=== PATIENT | male | born 1970 | race Caucasian/White ===

== ENCOUNTER 2016-11-28 05:13 | Emergency (ER) | payer BC ==
[~2016-11-28] VITALS: Ht 170.2 cm; Wt 93.4 kg
[2016-11-28 05:22] VITALS: BP 145/89; PULSE 54; RESP 14; TEMP 98.5; O2SAT 99
[2016-11-28] MEDS ORDERED: SODIUM CHLORIDE 0.9% FLUSH 10 ML FLUSH IV FLUSH PRN (05:45)
--- NOTE | 2016-11-28 05:53 | PD ---
HPI Chief Complaint: Abdominal Pain Time Seen by Provider: 05:34 Travel History International Travel<30 days: No Contact w/Intl Traveler<30days: No Traveled to known affect area: No History of Present Illness HPI Is a 46-year-old man who presents emergency department complaint of right sided abdominal pain started tonight about 2 AM or so. States he felt clammy and cold when it started. He also had 2 episodes of vomiting. His never really had it before. He is feeling well both started. No change in his bowel movements. No urinary symptoms. No history of abdominal surgery. No other complaints. History Past Medical History Medical History: Denies Significant Hx Tetanus Vaccination: > 5 Years Influenza Vaccination: No Social History Alcohol Use: No Tobacco Use: No Allergies-Medications (Allergen,Severity, Reaction): Coded Allergies: No Known Allergies (Unverified , 11/28/16) Reported Meds & Prescriptions Reported Meds & Active Scripts Active Zofran Odt (Ondansetron Odt) 4 Mg Tab 4 Mg SL Q8HR PRN May substitute non-ODT form. Naprosyn (Naproxen) 500 Mg Tab 500 Mg PO BID PRN Lortab (Hydrocodone-Acetaminophen) 5-325 Mg Tab 1-2 Tab PO Q6H PRN Review of Systems Except as stated in HPI: all other systems reviewed are Neg Physical Exam Narrative GENERAL: Well-appearing 46-year-old man, appears a little but nontoxic. SKIN: Focused skin assessment low but clammy. NECK: Trachea midline. No JVD. CARDIOVASCULAR: Regular rate and rhythm. No murmur appreciated. RESPIRATORY: No accessory muscle use. Clear to auscultation. Breath sounds equal bilaterally. GASTROINTESTINAL: No CVA tenderness percussion. Abdomen is flat and soft. Mild right lower quadrant tenderness. No rebound or guarding. No right upper quadrant tenderness. Negative Hay's. MUSCULOSKELETAL: No obvious deformities. No clubbing. No cyanosis. No edema. NEUROLOGICAL: Awake and alert. No obvious cranial nerve deficits. Motor grossly within normal limits. Normal speech. PSYCHIATRIC: Appropriate mood and affect; insight and judgment normal. Data Data Last Documented VS Vital Signs Date Time Temp Pulse Resp B/P Pulse Ox O2 Delivery O2 Flow Rate FiO2 11/28/16 05:22 98.5 54 14 145/89 99 Orders Complete Blood Count With Diff (11/28/16 05:34) Comprehensive Metabolic Panel (11/28/16 05:34) Lipase (11/28/16 05:34) Urinalysis - C+S If Indicated (11/28/16 05:34) Iv Access Insert/Monitor (11/28/16 05:34) Ecg Monitoring (11/28/16 05:34) Oximetry (11/28/16 05:34) Sodium Chloride 0.9% Flush (Ns Flush) (11/28/16 05:45) Ed Poc Ultrasound (11/28/16 05:34) Ct Abd/Pel W/O Iv Contrast (11/28/16 ) Ketorolac Inj (Toradol Inj) (11/28/16 06:30) Sodium Chlor 0.9% 1000 Ml Inj (Ns 1000 M (11/28/16 06:30) Labs Laboratory Tests Test 11/28/16 11/28/16 05:40 05:45 White Blood Count 9.5 TH/MM3 Red Blood Count 5.24 MIL/MM3 Hemoglobin 15.4 GM/DL Hematocrit 47.0 % Mean Corpuscular Volume 89.8 FL Mean Corpuscular Hemoglobin 29.4 PG Mean Corpuscular Hemoglobin 32.8 % Concent Red Cell Distribution Width 13.6 % Platelet Count 303 TH/MM3 Mean Platelet Volume 7.9 FL Neutrophils (%) (Auto) 80.9 % Lymphocytes (%) (Auto) 12.9 % Monocytes (%) (Auto) 4.9 % Eosinophils (%) (Auto) 0.7 % Basophils (%) (Auto) 0.6 % Neutrophils # (Auto) 7.6 TH/MM3 Lymphocytes # (Auto) 1.2 TH/MM3 Monocytes # (Auto) 0.5 TH/MM3 Eosinophils # (Auto) 0.1 TH/MM3 Basophils # (Auto) 0.1 TH/MM3 CBC Comment DIFF FINAL Differential Comment Sodium Level 143 MEQ/L Potassium Level 3.4 MEQ/L Chloride Level 107 MEQ/L Carbon Dioxide Level 26.2 MEQ/L Anion Gap 10 MEQ/L Blood Urea Nitrogen 16 MG/DL Creatinine 1.30 MG/DL Estimat Glomerular Filtration 59 ML/MIN Rate Random Glucose 114 MG/DL Calcium Level 8.6 MG/DL Total Bilirubin 0.2 MG/DL Aspartate Amino Transf 27 U/L (AST/SGOT) Alanine Aminotransferase 48 U/L (ALT/SGPT) Alkaline Phosphatase 92 U/L Total Protein 7.5 GM/DL Albumin 3.7 GM/DL Lipase 109 U/L Urine Color YELLOW Urine Turbidity SLIGHT Urine pH 5.0 Urine Specific Delia 1.024 Urine Protein TRACE mg/dL Urine Glucose (UA) NEG mg/dL Urine Ketones NEG mg/dL Urine Occult Blood LARGE Urine Nitrite NEG Urine Bilirubin NEG Urine Leukocyte Esterase NEG Urine RBC 50-99 /hpf Urine Squamous Epithelial 0-5 /hpf Cells Urine Bacteria OCC /hpf Urine Mucus MOD /lpf Microscopic Urinalysis Comment CULT NOT INDICATED MDM Medical Decision Making Medical Screen Exam Complete: Yes Emergency Medical Condition: Yes Interpretation(s) LABS: CBC is unremarkable. CMP is unremarkable. Lipase negative. UA is remarkable for hematuria. My review of CT scan shows a small punctate stone at the UVJ or possibly already passed into the urinary bladder. No hydronephrosis or hydroureter. Differential Diagnosis Appendicitis, cholecystitis, renal lithiasis, choledocholithiasis, hernia, other Narrative Course Medical decision making: INITIAL:: 46-year-old man presents emergency Department with right lower quadrant abdominal pain. Little tenderness. Symptoms been ongoing for just a few hours now. Quick bedside ultrasound doesn't show any hydronephrosis, although the views are suboptimal gallbladder looks generally unremarkable. Early appendicitis is a consideration but seems to progress more rapidly than I would expect for appendicitis. We'll check labs, check urine, no blood in the urine will check CT with contrast for appendicitis. Diagnosis Primary Impression: Renal lithiasis Additional Instructions: Take Naprosyn as needed for [id number] pain. Take Lortab as needed for severe pain. Use caution as this can cause drowsiness. Do not take while driving. Use Zofran as a for nausea and vomiting. Drink plenty of fluids. Follow-up with your primary doctor in the next 2-4 days. Return to the emergency department for any worsening pain, intractable vomiting , fevers or chills, or any other new or worsening symptoms. Scripts Ondansetron Odt (Zofran Odt)4 Mg Tab4 Mg SL Q8HR PRN (Nausea/Vomiting) #15 TAB May substitute non-ODT form. Prov:Jair Rose MD 11/28/16 Naproxen (Naprosyn)500 Mg [id number] Mg PO BID PRN (PAIN SCALE 1 TO 10) #20 TAB Prov:Jair Rose MD 11/28/16 Hydrocodone-Acetaminophen (Lortab)5-325 Mg Tab1-2 Tab PO Q6H PRN (PAIN) #12 TAB Prov:Jair Rose MD 11/28/16 Disposition: 01 DISCHARGE HOME Condition: Stable Jair Rose MD November 28, 2016 05:53
[2016-11-28 06:09] LABS: BLOOD, URINE LARGE (NEG); GLUCOSE,URINE NEG (NEG); KETONE, URINE NEG (NEG); NITRITE,URINE NEG (NEG)
[2016-11-28 06:15] LABS: CHLORIDE 107 MEQ/L (98-107); POTASSIUM 3.4 MEQ/L (3.5-5.1); SODIUM (NA) 143 MEQ/L (136-145)
[2016-11-28 06:16] LABS: AUTOMATED NEUTROPHIL # 7.6 TH/MM3 (1.8-7.7); BASOPHIL # 0.1 TH/MM3 (0-0.2); BASOPHIL % 0.6 % (0.0-2.0); EOSINOPHIL # 0.1 TH/MM3 (0-0.4); EOSINOPHIL % 0.7 % (0.0-4.0); HEMO FLAGS DIFF FINAL; LYMPH % 12.9 % (9.0-44.0); LYMPHOCYTE # 1.2 TH/MM3 (1.0-4.8); MEAN CELL VOLUME 89.8 FL (80.0-100.0); MEAN CORPUSCULAR HEMOGLOBIN 29.4 PG (27.0-34.0); MEAN CORPUSCULAR HGB CONC 32.8 % (32.0-36.0); MONO % 4.9 % (0.0-8.0); NEUT % 80.9 % (16.0-70.0); PLATELET COUNT 303 TH/MM3 (150-450); RED BLOOD COUNT 5.24 MIL/MM3 (4.50-5.90); RED CELL DISTRIBUTION WIDTH 13.6 % (11.6-17.2); WHITE BLOOD COUNT 9.5 TH/MM3 (4.0-11.0)
[2016-11-28 06:19] LABS: ANION GAP 10 MEQ/L (5-15); BICARBONATE 26.2 MEQ/L (21.0-32.0); BLOOD UREA NITROGEN 16 MG/DL (7-18)
[2016-11-28 06:22] LABS: ALT (GPT) 48 U/L (12-78); AST (GOT) 27 U/L (15-37); GLOMERULAR FILTRATION RATE 59 ML/MIN (>89)
[2016-11-28 06:23] LABS: TOTAL BILIRUBIN ADULT 0.2 MG/DL (0.2-1.0)
[2016-11-28 06:24] LABS: ALKALINE PHOSPHATASE 92 U/L (45-117)
[2016-11-28] MEDS ORDERED: ZOFR4TAB3 SL (06:24)
[2016-11-28] MEDS ORDERED: NAPR500 PO (06:24)
[2016-11-28] MEDS ORDERED: HYDR-3533 PO (06:24)
[2016-11-28 06:26] LABS: MUCUS URINE MOD /lpf (OCC); URINE COLOR YELLOW (YELLW/STRAW)
[2016-11-28 06:27] LABS: SQUAMOUS EPITHELIAL CELL URINE 0-5 /hpf (0-5)
[2016-11-28 06:28] LABS: BACTERIA, URINE OCC /hpf; COMMENT (UR) CULT NOT INDICATED; CULTURE IF INDICATED CULT NOT INDICATED
[2016-11-28] MEDS ORDERED: SODIUM CHLOR 0.9% 1000 ML INJ 1,000 ML IV SCH (06:30)
[2016-11-28] MEDS ORDERED: KETOROLAC TROMETHAMINE 30 MG/ML (IVP) VIAL IV PUSH ONE (06:30)
[2016-11-28 06:43] VITALS: BP 149/86; PULSE 69; RESP 16; O2SAT 97
--- NOTE | 2016-11-28 06:55 | RADHPO ---
EXAM DATE/TIME: 11/28/2016 06:27 [facility] COMPARISON: No previous studies available for comparison. INDICATIONS : Right abdominal pain. Vomiting. ORAL CONTRAST: No oral contrast ingested. RADIATION DOSE: 23.26 CTDIvol (mGy) MEDICAL HISTORY : None SURGICAL HISTORY : None. ENCOUNTER: Initial ACUITY: 1 day PAIN SCALE: 5/10 LOCATION: Right flank TECHNIQUE: Volumetric scanning of the abdomen and pelvis was performed. Using automated exposure control and ad justment of the mA and/or kV according to patient size, radiation dose was kept as low as reasonably achievable to obtain optimal diagnostic quality images. FINDINGS: LOWER LUNGS: The visualized lower lungs are clear. LIVER: Homogeneous lobe density without lesion. There is no dilation of the biliary tree. No calcified gal lstones. SPLEEN: Normal size without lesion. PANCREAS: Within normal limits. KIDNEYS: Normal in size and shape. 2 tiny stones are seen involving the right kidney. These measure 1-2 mm in size. There is a distal stone on the right. Please see discussion under the bladder section. There i s mild hydronephrosis and hydroureter. No perinephric stranding or fluid collections. Left kidney is unremarkable. ADRENAL GLANDS: Within normal limits. VASCULAR: There is no aortic aneurysm. BOWEL/MESENTERY: The stomach, small bowel, and colon demonstrate no acute abnormality. There is no free intraperitone al air or fluid. ABDOMINAL WALL: Within normal limits. RETROPERITONEUM: There is no lymphadenopathy. BLADDER: There is a 2 mm stone associated with the distal ureter on the right. This is either within the intra mural segment of the ureterovesical junction or perhaps just within the urinary bladder lumen itself. The bladder is otherwise unremarkable. REPRODUCTIVE: Within normal limits. INGUINAL: There is no lymphadenopathy or hernia. MUSCULOSKELETAL: Within normal limits for patient age. CONCLUSION: 1. 2 mm stone at the right UVJ. This is either within the intramural segment or within the lumen of t he bladder. There is mild hydronephrosis and hydroureter. 2. 2 tiny right renal stones. 3. Hepatic steatosis. Jhoan Booth Jr., MD on November 28, 2016 at 6:50 Board Certified Radiologist. This report was verified electronically.
[2016-11-28 07:13] VITALS: BP 147/82
== END 2016-11-28 07:15 | disposition home or self-care (01) ==
LOC: PHED 05:13
DX: N20.0 Calculus of kidney (principal)
CPT/HCPCS: 74176; 80053; 81001; 83690; 85025; 96374; 99284; J1885; J7030